=== PATIENT | female | born 1950 | race Caucasian/White ===

== ENCOUNTER 2022-03-13 11:28 | Emergency (ER) | payer BC, MEDICARE ==
[2022-03-13] MEDS ORDERED: Sodium Chloride 0.9% 10 ML Syringe FLUSH PRN (11:31)
[2022-03-13 11:49] VITALS: BP 148/55; PULSE 71
[2022-03-13 12:03] LABS: ESTIMATED GFR 48 mL/min (>60)
[2022-03-13] MEDS: Magnesium Sulfate/Water 2 GM in Premix Bag 1 BAG IV ONE (12:38)
== END 2022-03-13 15:50 | disposition home or self-care (01) ==
LOC: FB.ED 11:28
DX: I47.1 Supraventricular tachycardia (principal); E83.42 Hypomagnesemia; R79.1 Abnormal coagulation profile; I12.9 Hypertensive chronic kidney disease with stage 1 through stage 4 chronic kidney disease, or unspecified chronic kidney disease; N18.9 Chronic kidney disease, unspecified; E78.00 Pure hypercholesterolemia, unspecified; Z88.5 Allergy status to narcotic agent; Z88.2 Allergy status to sulfonamides; Z88.8 Allergy status to other drugs, medicaments and biological substances; Z79.82 Long term (current) use of aspirin; Z79.01 Long term (current) use of anticoagulants; Z79.899 Other long term (current) drug therapy
CPT/HCPCS: 36415; 71045; 80048; 83735; 84484; 85025; 85610; 85730; 93005; 93010; 96365; 96366; 99283; 99285-25; J3475

== ENCOUNTER 2024-07-22 11:11 | Emergency (ER) | payer MEDICARE ==
[2024-07-22 11:58] LABS: BASOPHILS PERCENT AUTO 0.2 % (0.2-1.5); EOSINOPHILS ABSOLUTE AUTO 0.1 x10-3/uL (0.0-0.8); EOSINOPHILS PERCENT AUTO 0.6 % (0.6-8.1); HEMATOCRIT 36.4 % (34.2-48.2); HEMOGLOBIN 12.4 g/dL (11.4-15.5); LYMPHOCYTES ABSOLUTE AUTO 1.3 x10-3/uL (1.0-4.4); LYMPHOCYTES PERCENT AUTO 12.4 % (18.4-52.1); MEAN CORPUSCULAR HGB CONC 34.2 g/dL (31.9-34.8); MEAN CORPUSCULAR VOLUME 96.5 fL (76.7-100.5); MEAN PLATELET VOLUME 6.8 fL (7.1-12.4); MONOCYTES ABSOLUTE AUTO 0.3 x10-3/uL (0.3-1.0); MONOCYTES PERCENT AUTO 2.9 % (4.4-15.7); NEUTROPHILS ABSOLUTE AUTO 8.8 x10-3/uL (1.5-6.3); NEUTROPHILS PERCENT AUTO 83.9 % (30.8-76.2); PLATELET COUNT,PLT 289 x10(3)uL (151-488); RED BLOOD CELL COUNT 3.77 x10(6)uL (3.60-5.20); RED CELL DISTRIBUTION WIDTH 12.6 % (12.3-16.5); WHITE BLOOD CELL COUNT,WBC 10.5 x10-3/uL (3.0-10.3)
[2024-07-22] MEDS: Albuterol/Ipratropium 3.0-0.5 MG/3 ML Neb Soln NEB ONE (11:59)
[2024-07-22] MEDS: Ketorolac 30 MG/ML SDV IVPUSH ONE (12:02)
[2024-07-22] MEDS: Ondansetron 4 MG/2 ML SDV IVPUSH ONE (12:02)
[2024-07-22 12:04] LABS: BLOOD UREA NITROGEN,BUN 16 mg/dL (7-18); BUN/CREATININE RATIO 13.3 (9-20); CALCIUM 8.7 mg/dL (8.6-10.2); CARBON DIOXIDE,CO2 28 mmol/L (21-32); CHLORIDE,CL 98 mmol/L (100-110); CREATININE 1.2 mg/dL (0.55-1.02); EST CRCL DRUG DOSING (CG) 36.05 mL/min; ESTIMATED GFR 48 mL/min (>60); GLUCOSE RANDOM 117 mg/dL (80-116); POTASSIUM,K 3.4 mmol/L (3.5-5.3); SODIUM,NA 133 mmol/L (135-145)
[2024-07-22] MEDS: Loratadine 10 MG Tab PO ONE (12:08)
[2024-07-22] MEDS: Sodium Chloride 0.9% 10 ML Syringe FLUSH PRN (12:08)
[2024-07-22] MEDS: Lactated Ringers 1,000 ML IV SCH (12:17)
[2024-07-22 13:59] VITALS: BP 102/47; PULSE 77
== END 2024-07-22 13:50 | disposition home or self-care (01) ==
LOC: FB.ED 11:11
DX: L23.9 Allergic contact dermatitis, unspecified cause (principal); E87.6 Hypokalemia; G89.4 Chronic pain syndrome; R51.9 Headache, unspecified; E78.00 Pure hypercholesterolemia, unspecified; I10 Essential (primary) hypertension; Z79.01 Long term (current) use of anticoagulants; Z79.899 Other long term (current) drug therapy; Z79.82 Long term (current) use of aspirin; Z88.8 Allergy status to other drugs, medicaments and biological substances; Z88.5 Allergy status to narcotic agent; Z88.2 Allergy status to sulfonamides
CPT/HCPCS: 36415; 80048; 85025; 94640; 96361; 96374; 96375; 99283; 99283-25; A9270-GY; J1885; J2405; J3490; J7120; J7620

== ENCOUNTER 2024-09-03 08:17 | Day surgery (SDC) | payer MEDICARE ==
[2024-09-03] MEDS ORDERED: Propofol 200 MG/20 ML SDV IV ONE (08:18)
[2024-09-03] MEDS ORDERED: Sodium Chloride 0.9% 10 ML Syringe FLUSH PRN (08:30)
[2024-09-03 09:04] VITALS: BP 145/61; PULSE 72
[2024-09-03] MEDS: Lactated Ringers 1,000 ML IV SCH (09:15)
== END 2024-09-03 11:42 | disposition home or self-care (01) ==
LOC: FB.SDS 08:17
PROVIDERS: ATTEND Surgery
DX: Z12.11 Encounter for screening for malignant neoplasm of colon (principal); N18.31 Chronic kidney disease, stage 3a; E66.9 Obesity, unspecified; Z79.01 Long term (current) use of anticoagulants; Z79.899 Other long term (current) drug therapy; Z79.82 Long term (current) use of aspirin; Z88.5 Allergy status to narcotic agent; Z68.33 Body mass index [BMI] 33.0-33.9, adult
CPT/HCPCS: 00812; 99100; J2704; J7120